=== PATIENT | male | born 1990 | race Caucasian/White ===

== ENCOUNTER 2023-01-06 21:55 | Emergency (ER) | payer MEDICAID, SELFPAY ==
[2023-01-06 21:58] VITALS: BP 146/95; PULSE 74; RESP 16; TEMP 36.9; O2SAT 99; BMI 23.6
[2023-01-06 22:48] VITALS: BP 115/73; PULSE 70; RESP 17; TEMP 37; O2SAT 98
--- NOTE | 2023-01-06 23:38 | ED.WOUNDLAC ---
HPI - Wound/Laceration General Chief Complaint: Wound/Laceration Stated Complaint: Forehead Lac Time Seen by Provider: 01/06/23 23:17 Source: patient Mode of arrival: ambulatory Limitations: no limitations History of Present Illness HPI narrative: 32-year-old male without significant medical history, presents to the emergency department for evaluation of laceration to left eyebrow, patient reports that about 2 hours ago patient was changing a tire and hit his face with the metal when she was using to change the tire. No loss of consciousness, reports it started bleeding and he started having pain at the site. Denies dizziness, vision changes, nausea, vomiting, abdominal pain, pain with eye movements, chest pain, shortness of breath. NIH stroke scale 0. Related Data Allergies Allergy/AdvReac Type Severity Reaction Status Date / Time Unable to Assess Allergy Unverified 01/06/23 23:41 Review of Systems Review of Systems: Constitutional : No Fever, No Chills, Cardiovascular : No Chest Pain, No SOB Respiratory : No Dyspnea Gastrointestinal : No abdominal pain Musculoskeletal : No Joint Swelling Skin : No rash, positive skin laceration Neuro : No Weakness, No Numbness Psych : No SI/HI Yes all other systems are reviewed and are negative [facility] Past Medical History Attestation statement: The following information was validated with the patient. Source: old records reviewed and nursing notes reviewed Social History Social History Advance Directives: No Advance Directives Information Provided: No Physical Exam Vital Signs: Vital Signs: Last Vital Signs Temp 98.6 F 01/06/23 22:48 Pulse 70 01/06/23 22:48 Resp 17 01/06/23 22:48 BP 115/73 01/06/23 22:48 Pulse Ox 98 01/06/23 22:48 O2 Del Method Room Air 01/06/23 22:48 BMI result Body Mass Index 23.6 vss Appearance: Alert.? Oriented X3.? No acute distress.? Head: Normocephalic, atraumatic, no step-offs or deformities Eyes: Pupils equal, round and reactive to light.? Extraocular movements intact and pain-free. No signs of nerve entrapment. ENT: Pharynx normal.? Neck: Normal inspection.? Neck supple.? CVS: Normal heart rate and rhythm.? Pulses normal.? Respiratory: No respiratory distress.? Breath sounds normal.? Abdomen: Soft and nontender.? Skin: Skin warm and dry.? Normal skin color.? Normal skin turgor.?+ 2 cm linear laceration overlying left eyebrow, no foreign bodies. No signs of skull fracture. Extremities: No lower extremity edema.? No calf ttp. 5/5 strength to bilateral upper and lower extremities Neuro: Oriented X 3.? No motor deficit.? No sensory deficit. CN 2-12 intact . Normal hebfck-ye-eqqh, tyrd-kk-pdca, steady tandem gait normal coordination. Negative Romberg and pronator drift. Course Reevaluation(s) Reevaluation #1: Laceration repaired with Dermabond, nursing to give Boostrix . Educated patient on diagnosis and treatment plan, answered all question, patient verbalizes understanding. At this time patient will be discharged home, advised to return with new or worsening symptoms. Educated on worrisome signs and symptoms and when to return. At this time I feel comfortable discharge home. Time: 23:45 Medical Decision Making Medical Decision Making [facility] Narrative: [id number] 32-year-old male presents with laceration to left eyebrow. Happened prior to arrival. Not up-to-date on tetanus shot Physical exam significant for 2 cm linear laceration overlying left eyebrow, no foreign bodies. No signs of skull fracture. Likely simple laceration. Unlikely skull fracture, intracranial hemorrhage, stroke, posterior stroke. No signs of facial fractures. No signs of nerve entrapment. Concerns for concussion without loss of consciousness. Plan repair with Dermabond. Very superficial. I did discuss glue versus sutures with patient at this time Dermabond was selected. Risks versus benefits explained. Patient verbalizes understanding. Differential Diagnosis Differential Diagnoses: The differential diagnosis associated with the presentation includes Likely simple laceration. Unlikely skull fracture, intracranial hemorrhage, stroke, posterior stroke. No signs of facial fractures. No signs of nerve entrapment. Concerns for concussion without loss of consciousness. Admission/Observation Consideration of admission/observation: Escalation of care including admission/observation considered no indication Tests considered The following testing was considered but not selected: CT Unnecessary The [place] Head CT Rule suggests a head CT is not necessary for this patient (sensitivity 83-100% for all intracranial traumatic findings, sensitivity 100% for findings requiring neurosurgical intervention). Core Measures AMI core measures followed: Yes Measure exclusions: not indicated Critical Care Time Critical Care Time Critical Care Time: No Discharge Plan Discharge Clinical Impression: Laceration, Concussion Patient Disposition: Home, Self-Care Instructions: Concussion (ED), Post Concussion Syndrome (ED) Additional Instructions: Take your medications as prescribed. If you were prescribed antibiotics today, it is important that you take your medication to their entirety, do not skip any doses, do not finish them early. Follow-up with your primary care provider this week. Return to the emergency department with new or worsening symptoms. Such as fevers, chills, chest pain, shortness of breath, nausea, vomiting, dizziness, headache, vision changes, lethargy In case of emergency call 911 Allow the glue to fall off on its own Referrals: PhysicianJavier J [Primary Care Provider] - 2 days
[2023-01-07] MEDS: Diphth,Pertus(ACell),Tet Adult 0.5 ML SYRINGE IM (00:04)
== END 2023-01-07 00:10 | disposition home or self-care (01) ==
PROVIDERS: Emergency Provider Emergency Medicine
DX: S01.112A Laceration without foreign body of left eyelid and periocular area, initial encounter (principal); W22.8XXA Striking against or struck by other objects, initial encounter; Y93.89 Activity, other specified; Y92.410 Unspecified street and highway as the place of occurrence of the external cause; Y99.9 Unspecified external cause status
CPT/HCPCS: 12011; 90471; 90715; 99282; 99284

== ENCOUNTER 2023-11-14 07:40 | Emergency (ER) | payer SELFPAY ==
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
[2023-11-14 07:53] VITALS: BP 124/80; BP 132/81; PULSE 84; PULSE 86; RESP 16; TEMP 36.6; O2SAT 97; BMI 23.2
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
[2023-11-14] MEDS: Acetaminophen 325 MG TABLET 975 MG PO (09:54)
[2023-11-14] MEDS: Ibuprofen 600 MG TABLET PO (09:55)
--- NOTE | 2023-11-14 10:00 | PC.NURSE ---
pt medicated per provider order. effectiveness pending.
--- NOTE | 2023-11-14 10:19 | PC.NURSE ---
sutures applied by ED provider at this time. pt waiting to go to xray.
[2023-11-14 12:50] VITALS: BP 110/67; PULSE 80; RESP 16; TEMP 36.8; O2SAT 98
[2023-11-14 12:51] VITALS: BP 110/67; PULSE 80; RESP 16; TEMP 36.8; O2SAT 98
== END 2023-11-14 12:51 | disposition home or self-care (01) ==
PROVIDERS: Emergency Provider Emergency Medicine
DX: S01.511A Laceration without foreign body of lip, initial encounter (principal); S30.0XXA Contusion of lower back and pelvis, initial encounter; R10.2 Pelvic and perineal pain; V13.4XXA Pedal cycle driver injured in collision with car, pick-up truck or van in traffic accident, initial encounter; Y93.9 Activity, unspecified; Y92.410 Unspecified street and highway as the place of occurrence of the external cause; Y99.8 Other external cause status
CPT/HCPCS: 12011; 72170; 99283; 99284

== ENCOUNTER 2024-01-30 14:50 | Outpatient (REF) | payer SELFPAY ==
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
[2024-01-30 16:32] LABS: Estimated Average Glucose 103 mg/dL; Hemoglobin A1c % 5.2 % (<6.0)
[2024-01-30 20:41] LABS: Alanine Aminotransferase 24 U/L (0-40); Albumin Level 4.4 g/dL (3.5-5.0); Alkaline Phosphatase 84 U/L (39-117); Anion Gap 12 (12-20); Aspartate Amino Transferase 26 U/L (5-37); Bilirubin Total 0.4 mg/dL (0.0-1.0); Blood Urea Nitrogen 14 mg/dL (9-16); Calcium 9.4 mg/dL (8.4-10.2); Carbon Dioxide 25 mmol/L (22-29); Chloride 106 mmol/L (96-108); Cholesterol 154 mg/dL (<200); Estimated Glomerular Filt Rate > 60; Glucose Random 104 mg/dL (60-115); HDL Cholesterol 60 mg/dL (>40); LDL Cholesterol Calculated 85 mg/dL (<100); Potassium 3.8 mmol/L (3.3-5.1); Sodium 139 mmol/L (135-145); Total Protein 7.2 g/dL (6.5-8.0); Triglycerides 48 mg/dL (<150)
[2024-01-31 05:27] LABS: HIV AB/AG Nonreactive (Nonreactive); HIV Num 1 0.05 S/CO (0.00-0.99); ~HepC Num1 0.12 S/CO (0.00-0.79); ~Hepatitis C Antibody Nonreactive (Nonreactive)
== END 2024-01-30 14:51 | disposition home or self-care (01) ==
LOC: HO.HHCL 14:50
PROVIDERS: Visit Provider Nurse Practitioner Family
DX: Z00.00 Encounter for general adult medical examination without abnormal findings (principal); M54.6 Pain in thoracic spine; Z83.3 Family history of diabetes mellitus; Z13.1 Encounter for screening for diabetes mellitus
CPT/HCPCS: 36415; 72100; 80053; 80061; 83036; 86803; 87389

== ENCOUNTER 2024-04-12 15:28 | Outpatient (AMB) | payer MEDICAID, SELFPAY ==
--- NOTE | 2024-04-12 15:46 | MHC.OFFVIS ---
Intake Visit Reasons: [employer] urinary urgency Intake Note: New Patient is present for Vasectomy Consult Program Director Group Work Required: No Allergies No Known Allergies Allergy (Verified 04/12/24 16:00) HPI Comments Details: Sesar is a pleasant male. He is a patient of . He is seen for the following urologic conditions - lower urinary tract symptoms - anxiety about health Vasectomy evaluation The patient presents for vasectomy consultation. He is currently He has fathered - 3 child, with a single partner. The youngest child is - greater than 1 year. His partner is aware and permissive for a vasectomy Current form of control is barrier. The vasectomy may be complicated due to a history of [no] complicating issues, inguinal hernia repair, orchidopexy, history of orchitis, orchiectomy. Patient education has been provided via AUA video, via printed information, risks of failure, recovery time, bruising and potential pain syndrome have been stressed Discussion today focused on the presence of vasectomy and the risks, benefits and alternatives that are available. Vasectomy as intended as a permanent form of control. Printed information and literature was provided to the patient. Overall there is a one in 2500 failure rate. This can occur at any time after vasectomy. Risks were discussed highlighting hematoma, spermatocele, epididymal congestion, development of sperm antibodies, and development of chronic pain estimated between 1-5%. The procedure was reviewed in detail. Anatomical diagrams of the male genitalia were used to explain the location of the vas deferens. The vas deferens will be transected, the proximal end will be cauterized, a metal clip would be applied to separate the 2 vas deferens ends. It was explained the procedure will be done in the office and takes approximately 10-15 minutes. Less common problems that arise with vasectomy include hematoma, bleeding, allergic reaction to anesthetic, epididymal infection, epididymal congestion, scrotal discomfort, spermatic leak, spermatic granuloma and the possibility of antisperm antibodies. He understands these risks and wishes to proceed. Consent was signed at the office today. He also understands that it takes 12 weeks for sperm to fully clear the system. He will need to provide a semen sample at 12 weeks and if this is not clear a 2nd sample at 16 weeks. Medical clearance to stop using protection will only be provided if he satisfies published criteria for sperm clearance. [facility] Medical History (Updated 05/30/24 @ 14:46 by Andrew Germain MD) Chronic midline thoracic back pain Dental caries Social History (Updated 04/08/24 @ 16:27 by DUSTIN Fallon) Household Members: Spouse Housing: Apartment Review of Systems Const Denies chills and Denies fever(s) Card Reports no additional complaints and Denies syncope Resp Denies cough GI Denies abdominal pain and Denies heartburn Reports as per HPI and Denies change in libido Neuro Denies syncope Psych Denies change in libido Endo Denies change in libido Physical Exam Const General: cooperative, healthy appearing, comfortable and no acute distress Orientation/consciousness: patient oriented x3 HEENT Face and sinus: Yes normal facial exam Mouth: moist mucous membranes Neck Neck: Yes normal visual inspection, Yes full ROM and Yes trachea midline Chest Chest palpation & inspection: normal inspection of the chest Resp Effort & Inspection: normal respiratory effort, able to speak in complete sentences and no respiratory distress GI Inspection: Yes normal to inspection Back/Spine/Pelvis Cervical Spine: normal cervical lordosis Thoracic/Lumbar Spine: thoracic and lumbar spine normal to inspection Skin General skin exam: no rashes or lesions noted Neuro General: patient oriented x3, gait normal, tone normal and moves all extremities Extrem General: Yes normal to inspection and Yes capillary refill normal Assessment & Plan Assessment & Plan (1) Bladder instability: Code(s): N32.89 - Other specified disorders of bladder Category: Medical (2) Anxiety about health: Code(s): R45.89 - Other symptoms and signs involving emotional state Category: Medical Plan Vasectomy Patient Instructions: Imaging studies, laboratory and physical exam results were discussed and reviewed in detail. No major barriers to patient understanding were identified. An opportunity to ask questions regarding the treatment plan was provided. All questions were answered. The patient expressed understanding and agreement with the above treatment plan. The patient is aware they should contact our office by phone for worsening of their current condition or the appearance of new urologic symptoms. Compliance is encouraged with any medications and followup testing that is ordered. It is a privilege to participate in the urologic care of your patient. If you have any questions or concerns regarding treatment for the above conditions, or other urologic issues, please do not hesitate to contact me. The office telephone contact is [phone]. This note is constructed using voice recognition software. While every effort has been made to ensure accuracy news department intern errors may have been included. Yours sincerely, Dr Andrew Germain MD, M[facility] - Urology Providers of Expert, Compassionate Care for the Genitourinary System Coding Level of Care Code New Pt Level 4 (53219) Diagnoses Bladder instability N32.89 Anxiety about health R45.89
== END 2024-04-12 16:18 | disposition home or self-care (01) ==
PROVIDERS: PCP Nurse Practitioner Family; Visit Provider Urology
DX: N32.89 Other specified disorders of bladder (principal); R45.89 Other symptoms and signs involving emotional state
CPT/HCPCS: 99204

== ENCOUNTER → 2024-04-12 15:28 | Outpatient (BNVA) | payer MEDICAID, SELFPAY | PROVIDERS: PCP Nurse Practitioner Family; Visit Provider Urology | DX: N32.89 Other specified disorders of bladder (principal); F41.8 Other specified anxiety disorders; Z30.09 Encounter for other general counseling and advice on contraception | CPT/HCPCS: 99202 ==

== ENCOUNTER 2024-05-20 12:07 | Outpatient (REF) | payer MEDICAID, SELFPAY ==
--- NOTE | ~2024-05-20 | XR_ITS ---
EXAMINATION: XR SHOULDER, LEFT CLINICAL INFORMATION: PAIN COMPARISON: None available. TECHNIQUE: AP external rotation, Grashey, scapular Y, and axillary views of the left shoulder. FINDINGS: No fracture. Glenohumeral and acromioclavicular alignment is anatomic with normal joint space. No abnormal soft tissue calcifications. XR/XR shoulder LT min 2V IMPRESSION: No acute osseous abnormality Electronically signed by: Zaire Will MD 05/20/2024 04:31 PM EST
== END 2024-05-20 12:08 | disposition home or self-care (01) ==
LOC: HO.HHCX 12:07
DX: M25.512 Pain in left shoulder (principal)
CPT/HCPCS: 73030

== ENCOUNTER → 2024-06-28 14:52 | Outpatient (BNVA) | payer MEDICAID, SELFPAY | PROVIDERS: PCP Nurse Practitioner Family; Visit Provider Urology | DX: Z30.2 Encounter for sterilization (principal); R45.89 Other symptoms and signs involving emotional state | CPT/HCPCS: 55250; 81003 ==

== ENCOUNTER 2024-07-31 08:58 | Outpatient (RCR) | payer MEDICAID, SELFPAY | END 2024-08-29 11:06 | disposition home or self-care (01) | LOC: HO.PT 08:58 | PROVIDERS: PCP Nurse Practitioner Family; Visit Provider Nurse Practitioner Family | DX: M25.512 Pain in left shoulder (principal) | CPT/HCPCS: 97110; 97161; 97530 ==

== ENCOUNTER 2024-08-07 08:22 | Outpatient (REF) | payer MEDICAID, SELFPAY ==
--- NOTE | ~2024-08-07 | XR_ITS ---
EXAMINATION: XR SHOULDER, RIGHT CLINICAL INFORMATION: M25.511 - Pain in right shoulder COMPARISON: None available. TECHNIQUE: AP external rotation, Grashey, scapular Y, and axillary views of the right shoulder. FINDINGS: No acute cortical disruption or malalignment. No lytic or blastic lesions. No metallic or radiopaque foreign body. No subcutaneous emphysema. XR/XR shoulder RT min 2V IMPRESSION: Normal right shoulder. Electronically signed by: Ezra Retana MD 08/12/2024 08:57 AM EDT
--- OUTSIDE RECORDS SUMMARY | 2024-08-07 08:50 | XMS_ITS | Continuity of Care Document ---
Author Organization [facility] Address [address] [place] [address] Phone Care Team Providers Care Art Education Professor Name Role Phone Unavailable Unavailable Unavailable Allergies, Adverse Reactions, Alerts Substance Reaction Status Criticality No Known allergies Medications Medication Instructions Dosage Effective Dates (start - stop) Status Comments ibuprofen 800 mg tablet take 1 tablet (800MG) by oral route 3 times every day with food 800 MG - Active Procedures Procedure Date Resin-Based Composite-Two Surfaces, Post erior Prophylaxis-Adult Oral Hygiene Instructions Periodontal Probing Extraction, Erupted Tooth Or Exposed Tasia t (Elevati Comprehensive Oral Evaluation-New Or Est ablished P Intraoral-Complete Series (Including Bit ewings) Advance Directives Directive Yes / No Effective Date File Name No Information Encounters Encounter Description Practice Location Reason(s) For Visit Diagnoses Date Provider Providers Copied on Encounter Rodrigo [facility], [address] [place] [address],[address], [place], [place], [id number], tel:[phone] examination 4 No Information jennifer [facility], [address] [place] [address],[facility] [address], [place], [place], [id number], [place] tel:[phone] examination 4 Lisset Davis. [address] [place], [place], [id number]. tel:[phone] Edward [facility], [address], [place], [place], [id number], [place] tel:[phone] [facility] Dental examination 3 No Information Rodrigo Cruz [facility], [address], [place], [place], [id number], [place] tel:[phone] examination 3 Lisset Davis. [address] [place], [place], [id number]. tel:[phone] Family History Family Member Type Diagnosis Age At Onset No Information Payers Payer name Insurance type Covered constitution party ID Cici rolle(s) Juan [employer] [facility] ZZ [id number] Social History Type Description Quantity Date Captured Comments Sex Male Smoking Status No Information Chief Complaint And Reason For Visit No Information Reason For Referral Reason For Referral No Information Plan Of Treatment Date Type Action Status Goal Unhealthy drug use screening . Due on due Goal Document SOGI Information. D ue on due Goal Diabetes Screening. Due on due Goal Tdap. Due on due Goal APE. Due on due Goal Td vaccine. Due on 14 due Goal Influenza vaccine. Due on due Goal Td vaccine. Due on 14 due Goal APE. Due on due Goal Tdap. Due on due Goal Influenza vaccine. Due on due History Of Present Illness Encounter Date Complaint History Of Prese nt Illness No Information Functional Status Date Functional Assessmen t No Information Instructions Date Instruction Additional Infor mation No Information Assessments Type Assessment Date No Information Patient Care Teams Name Effective Dates (start - stop) Status Members No Information
--- OUTSIDE RECORDS SUMMARY | 2024-08-07 08:50 | XMS_ITS | Encounter Summary ---
Author Organization [facility] Address [address] [place] [address] 7 [place] [address] Care Team Providers Care Turbine Engine Assembler Name Role Phone Barry Granger Unassigned Primary Care Provider Unavailable Manda Sanders NP Primary Care Provider [phone] Reason for Visit * Reason Comments Med Change Request Encounter Details Date Type Department Care Team ([facility] Contact Info) Description 06/13/2023 Refill [facility] [address] [place] [address] Yoli Layton FNP [address] [place] [address] Social History Tobacco Use Types Packs/Day Years Used Date Smoking Tobacco: Never Passive Smoke Exposure: Never Smokeless Tobacco: Never Alcohol Use Standard Drinks/Week Comments Defer 0 (1 standard drink = 0.6 oz pur e alcohol) Sex and Gender Information Value Date Recorded Sex Assigned at Male 05/22/2023 12:42 PM EST Legal Sex Male 4:19 PM EDT Gender Identity Male 05/22/2023 12:42 PM EST Sexual Orientation Straight 05/22/2023 12 :42 PM EST documented as of this encounter Plan of Treatment Not on file documented as of this encounter Visit Diagnoses Not on filedocumented in this encounter Care Teams Turbine Engine Assembler Relationship Specialty Start Date End Date Barry Granger Unassigned PCP - General 11/24/23 4 Manda Sanders NP [address] [place] [address] PCP - General Family Medicine 01/30/24 documented as of this encounter
--- OUTSIDE RECORDS SUMMARY | 2024-08-07 08:50 | XMS_ITS | Clinical Summary ---
Author Organization [employer] Address [address] [place] [address] [address]t [place] [address] Care Team Providers Care System Support Analyst Name Role Phone Manda Sanders ISMAEL Primary Care Provider [phone] Allergies No known active allergies Medications hydrocortisone (Preparation H) 1 % cream Apply to anal area bid prn 30 g 2 4 Active metroNIDAZOLE (Metrogel) 0.75 % gel Apply topically 2 times daily. 45 g 3 4 04/02/20 25 Active ibuprofen 600 MG tablet Take 1 tablet (600 mg) by mouth every 6 (six) hours if needed for mild pain for up to 20 doses. 20 tablet 4 Active Active Problems Problem Noted Date Diagnosed Date Acute pain of left shoulder 05/10/2024 Assessment & Plan (05/10/2024 2:00 PM EST): No decreased ROM or decreased strength in left shoulder. No swelling, no redness or excessive heat. +empty can test and arc test D/t hx and presenting sx suspicion for rotator cuff tear; differential dx: subacromial impingement syndrome Will order X ray to r/o fracture Referred to Physical Therapy, if ineffective consideration for MRI Pt declines need for pain control at this time. F/u PRN for new or worsening sx Symptomatic irreversible pulpitis 04/15/2024 Rosacea, acne 04/02/2024 Assessment & Plan (04/02/2024 6:47 PM EDT): Advised re use of sunblock, moisturizer and Metrogel bid x 2w then at bedtime for 1mo then prn. Avoid heat or extreme temperatures, stress, alcohol, and spicy foods. FU with PCP Chronic midline thoracic back pain 01/30/2024 Assessment & Plan (02/06/2024 4:31 PM EDT): Chronic issue, x-ray ordered Referral to physiatry Family history of diabetes mellitus (DM) 024 Assessment & Plan (02/06/2024 4:31 PM EDT): Labs as ordered below Dental caries on smooth surface limited to ename l 06/13/2023 Encounters Date Type Department Care Team Description 07/01/2024 Orders Only [address] [address] Monica Ryan CNP Acute pain of left shoulder (Primary Dx) 07/01/[address] [address] Manda Sanders NP Imaging Order 06/26/[address] [address] Manda Sanders NP Lab Orders 05/10/2024 1:00 PM EST Office Visit [address] [address] Monica Ryan CNP Acute pain of left shoulder (Primary Dx) 05/10/[address] [address] Monica Ryan CNP 05/10/[address] [address] Thor Victor [place] Chart Prep 05/10/2024 Telephone [facility] [address] [place] [address] Manda Sanders NP triage pt 2 out of 2 from Last 3 Months Immunizations Name Administration Dates Next Due Tdap 01/07/2023 Social History Tobacco Use Types Packs/Day Years Used Date Smoking Tobacco: Never Passive Smoke Exposure: Never Smokeless Tobacco: Never Alcohol Use Standard Drinks/Week Comments Yes 0 (1 standard drink = 0.6 oz pur e alcohol) occasionally Depression Answer Date Recorded Patient Health Questionnaire-9 Score 0 01/30/2024 Patient Health Questionnaire-9 Score 0 01/30/2024 Last PHQ-9: Questionnaire Data Not on file 0 01/30/2024 Housing Stability Answer Date Recorded What is your housing situation today? I have arias guerra 01/30/[address] you li ve. Do you have problems with any of the following? None of the above 01/30/2024 Food Insecurity Answer Date Recorded Within the past 12 months, y ou worried that your food would run out before you got money to buy more: Never True 01/30/2024 Within the past 12 months,th e food you bought just didn't last and you didn't have enough money to get more: Never True Transportation Answer Date Recorded In the past 12 months, has l ack of transportation kept you from medical appts, meetings, work or from getting things needed for daily living? No 01/30/2024 Utilities Answer Date Recorded In the past 12 months, has t he electric, gas, oil or water company threatened to shut off services in your home? No 01/30/2024 Depression Answer Date Recorded Patient Health Questionnaire-2 Score 0 01/30/2024 Internet Access Answer Date Recorded Internet Access Q1 Yes 02/02/2024 Internet Access Q2 Not on file 02/02/2024 Sex and Gender Information Value Date Recorded Sex Assigned at Male 05/22/2023 12:42 PM EST Legal Sex Male 4:19 PM EDT Gender Identity Male 05/22/2023 12:42 PM EST Sexual Orientation Straight 05/22/2023 12 :42 PM EST Last Filed Vital Signs Vital Sign Reading Time Taken Comments Blood Pressure 122/71 05/10/2024 1:13 PM EST Pulse 61 05/10/2024 1:13 PM EST Temperature 36.7 ??C (98 ??F) 05/10/2024 1:13 PM EST Respiratory Rate 17 05/10/2024 1:13 PM EST Oxygen Saturation 98% 01/30/2024 2:02 PM EDT Inhaled Oxygen Concentration - - Weight 71.4 kg (157 lb 6 oz) 05/10/2024 1:13 PM EST Height 172.7 cm (5' 8 ) 05/10/2024 1:13 PM EST Body Mass Index 23.93 05/10/2024 1:13 PM EST Plan of Treatment Health Maintenance Due Date Last Done Comments Family Planning (PISQ) 2005 Hepatitis B Vaccines (1 of 3 - 19+ 3-dose series) 2009 Dental Oral Exam 12/13/2023 06/13/2023 Dental Prophylaxis 12/13/2023 06/13/2023 COVID-19 Vaccine (2 - 2023-2 5 season) 2024 12/03/2020 Influenza Vaccine (#1) 2024 Dental X-Ray: Bitewings 06/14/2024 06/13/2023 Alcohol/Substance Use Screening 01/29/2025 01/30/2024 Depression Screening 01/29/2025 01/30/2024, 01/30/2024 SDOH Screening 01/29/2025 01/30/2024 Tobacco Screening 05/10/2025 05/10/2024 Dental X-Ray: Full Mouth 06/14/2026 06/13/2023 DTaP/Tdap/Td Vaccines (2 - T d or Tdap) 01/07/2033 01/07/2023 Zoster Vaccines (1 of 2) 2040 RSV Patients and Patients Aged 60 years or older (1 - 1-dose 75+ series) 2065 HIV Screening Completed 01/30/2024 Hepatitis C Screening Completed 01/30/2024 HIB Vaccines Aged Out No longer eligi ble based on patient's age to complete this topic HPV Vaccines Aged Out No longer eligi ble based on patient's age to complete this topic Hepatitis A Vaccines Aged Out No long er eligible based on patient's age to complete this topic IPV Vaccines Aged Out No longer eligi ble based on patient's age to complete this topic Meningococcal Vaccine Aged Out No patricia lori eligible based on patient's age to complete this topic Pneumococcal Vaccine: Pediatrics (0 to 5 Years) and At-Risk Patients (6 to 49) Years) Aged Out No longer eligible b ased on patient's age to complete this topic RSV under 20 months Aged Out No longe r eligible based on patient's age to complete this topic Rotavirus Vaccines Aged Out No longer eligible based on patient's age to complete this topic Procedures Procedure Name Priority Date/Time Associated Diagnosis Comments XR SHOULDER 2+ VIEWS LEFT Routine 05/20/2024 12:09 PM EST Acute pain of left shoulder HEPATITIS C AB W/REFL TO HCV RNA, QN, PCR Routine 01/30/2024 2:58 PM EDT Healthcare maintenance HIV 1/2 ANTIGEN/ANTIBODY, FOURTH GENERATION W/RFL Routine 01/30/2024 2:58 PM EDT Healthcare maintenance PROPHYLAXIS - ADULT Routine 06/13/2023 8 :00 AM EST Dental caries on smooth surface limited to enamel INTRAORAL - COMPLETE SERIES OF RADIOGRAPHIC IMAGES Routine 06/13/2023 8:00 AM EST Dental caries on smooth surface limited to enamel COMPREHENSIVE ORAL EVALUATION - NEW OR ESTABLISHED PATIENT Routine 06/13/2023 8:00 AM EST Dental caries on smooth surface limited to enamel from Last 3 Months or Most Recently Relevant to Health Maintenance Results * XR Shoulder 2+ Views Left (05/20/2024 12:09 PM EST) Anatomical Region Laterality Modality Upper Extremities, Shoulder Left Radi ographic Imaging 05/20/2024 12:0 9 PM EST Narrative 05/20/2024 4:34 PM EST ?[facility] ?[address] ?[place] [address] ?XRay Report ? Signed ? Patient: Richard Lori,Sesar Bartolo ?MR ?? #: [id number] ? : 1990 ?Acct:[id number] ? Age/Sex: 34 / M ?ADM Date: 05/20/24 ? Loc: HO.HHCX ? Attending Dr: Monica Ryan UTILIZATION MANAGER ? Ordering Physician: Monica Ryan ?? Date of Service: 05/20/24 ?? Procedure(s): XR shoulder LT min 2V ?? Accession Number(s): [id number] ? cc: Ryan,Alexxis ? EXAMINATION: ?? XR SHOULDER, LEFT ? CLINICAL INFORMATION: ?? PAIN ? COMPARISON: ?? None available. ? TECHNIQUE: ?? AP external rotation, Grashey, scapular Y, and axillary views of the ?? left shoulder. ? FINDINGS: ?? No fracture. Glenohumeral and acromioclavicular alignment is anatomic ?? with normal joint space. No abnormal soft tissue calcifications. ? XR/XR shoulder LT min 2V ?? IMPRESSION: ?? No acute osseous abnormality ? Electronically signed by: ??Zaire Will MD ??05/20/2024 04:31 PM EST ?? RP ? Dictated By: ?Zaire Will MD ? Signed By: ?<Electronically signed by Zaire Will MD in OV> ?05/20/24 1631 ? DD/ 1209 ? TD/TT: 05/20/24 1221 ? Promotions Assistant: TAHIRA ? Procedure Note Dongurdeep, Yuliya - 05/20/2024 [place] [address] XRay Report Signed Patient: Sesar FrancoMR #: [id number] : 1990Acct:[id number] Age/Sex: 34 / MADM Date: 05/20/24 Loc: HO.HHCX Attending Dr: Monica Ryan UTILIZATION MANAGER Ordering Physician: Monica Ryan Date of Service: 05/20/24 Procedure(s): XR shoulder LT min 2V Accession Number(s): [id number] cc: Monica Ryan EXAMINATION: XR SHOULDER, LEFT CLINICAL INFORMATION: PAIN COMPARISON: None available. TECHNIQUE: AP external rotation, Grashey, scapular Y, and axillary views of the left shoulder. FINDINGS: No fracture. Glenohumeral and acromioclavicular alignment is anatomic with normal joint space. No abnormal soft tissue calcifications. XR/XR shoulder LT min 2V IMPRESSION: No acute osseous abnormality Electronically signed by: Zaire Will MD 05/20/2024 04:31 PM EST Dictated By: Zaire Will MD Signed By: <Electronically signed by Zaire Will MD in OV> 05/20/24 1631 DD/ 1209 TD/TT: 05/20/24 1221 Promotions Assistant: TAHIRA Monica Ryan [employer] IMG XR PROCEDURES Edited Result - Final * Hepatitis C Antibody with Reflex to HCV, RNA, Quantitative, Real-Time PCR (01/30/2024 2:58 PM EDT) Hepatitis C Antibody Nonreactive Nonreactive [facility] Comment:Antibodies to HCV no t detected; does not exclude early acuteHCV infection. Blood Venous blood specimen / Unknown 01/30/2024 2:58 PM EDT 01/30/2024 4:08 PM EDT Manda Sanders NP LAB BLOOD ORDERABLES Final Resul t Performing Organization Address [facility] Co de Phone Number [facility] [address] [place] [phone] * HIV-1/2 Antigen and Antibodies, Fourth Generation, with Reflexes (01/30/2024 2:58 PM EDT) Pathologist [facility] HIV AB/AG Nonreactive Nonreactive [facility] Comment:HIV-1 p24 Ag and/or HIV-1/HIV-2 Ab not detected.A test result that is nonreactive does not exclude thepossibility of exposure to or infection with HIV-1 and/orHIV-2. Nonreactive results in this assay for individualswith prior exposure to HIV-1 and/or HIV-2 may be due toantigen and antibody levels that are below the limit ofdetection of this assay.[employer] HIV Ag/Ab Combo assay result andsupplemental assay results should be interpreted inconjunction with the patient's clinical presentation,history and other laboratory results. If the results areinconsistent with clinical evidence, additional testing issuggested to confirm the result. Blood Venous blood specimen / Unknown 01/30/2024 2:58 PM EDT 01/30/2024 4:08 PM EDT Manda Sanders NP LAB BLOOD ORDERABLES Final Resul t Performing Organization Address City/[facility]/ZIP Co de Phone Number [facility] [address] [place] [address] [phone] from Last 3 Months or Most Recently Relevant to Health Maintenance [place] [facility] MEDICAID STAND ADULT [address] [id number] Care Teams System Support Analyst Relationship Specialty Start Date End Date Manda Sanders NP [address] [place] [address] PCP - General Family Medicine 01/30/24
--- OUTSIDE RECORDS SUMMARY | 2024-08-07 08:50 | XMS_ITS | Encounter Summary ---
Author Organization [facility] Address [address] [place] [address] 7 [place] [address] Care Team Providers Care Federal Agent Name Role Phone Barry Granger Unassigned Primary Care Provider Unavailable Manda Sanders NP Primary Care Provider [phone] Reason for Visit * Reason Onset Date Comments New Patient 03/21/2023 Encounter Details Date Type Department Care Team ([facility] st Contact Info) Description 03/21/2023 Telephone [facility]INE [address] [place] [address] Jerry Francois MD [address] [place] [address] New Patient Social History Tobacco Use Types Packs/Day Years Used Date Smoking Tobacco: Never Assessed Sex and Gender Information Value Date Recorded Sex Assigned at Male 05/22/2023 12:42 PM EST Legal Sex Male 4:19 PM EDT Gender Identity Male 05/22/2023 12:42 PM EST Sexual Orientation Straight 05/22/2023 12 :42 PM EST documented as of this encounter Miscellaneous Notes * Telephone Encounter - Ike Zaragoza - 03/21/2023 1:42 PM EDT Pt has been transfer over to wait list for [employer]. EFFECTIVE SINCE 03/21/2023 documented in this encounter Plan of Treatment Not on file documented as of this encounter Visit Diagnoses Not on filedocumented in this encounter Care Teams Federal Agent Relationship Specialty Start Date End Date Pcp, Barry Unassigned PCP - General 11/24/23 4 Manda Sanders NP [address] [place] [address] PCP - General Family Medicine 01/30/24 documented as of this encounter
--- OUTSIDE RECORDS SUMMARY | 2024-08-07 08:50 | XMS_ITS | Encounter Summary ---
Author Organization [facility] Address [address] [place] [address] Care Team Providers Care Manager Home Name Role Phone Sammie Sandersily ISMAEL Primary Care Provider [phone] Reason for Visit * Reason Comments Dental Pain Pt came in as an jim rgency with pain on his upper left side. 1 pa taken Encounter Details Date Type Department Care Team (Late st Contact Info) Description 04/15/2024 11:30 AM EST Office Visit [facility] ADULT DENTAL [address] [place] [address] Jamison Dent DDS [address] [place] [address] Symptomatic irreversible pulpitis (Primary Dx) Social History Tobacco Use Types Packs/Day Years [...] PM EST documented as of this encounter Progress Notes * Jamison Dent DDS - 04/15/2024 11:30 AM EST Dental procedures in this visit [id number] - INTRAORAL - PERIAPICAL FIRST RADIOGRAPHIC IMAGE (Completed) Service provider: Jamison Dent DDS Billing provider: Jamison Dent DDS [id number] - CASE PRESENTATION, DETAILED AND EXTENSIVE TREATMENT PLANNING (Completed) Service provider: Jamison Dent DDS Billsendy provider: Jamison Dent DDS [id number] - PALLIATIVE (EMERGENCY) TREATMENT OF DENTAL PAIN - MINOR PROCEDURE (Completed) Service provider: Jamison Dent DDS Billsendy provider: Jamison Dent DDS Patient ID: Sesar Sandoval is a 34 y.o. male. Time Out: No data recorded Location: [facility] Tooth: Maxilla and #14 Procedure: X-rays and Emergency Verified the above with patient, recovery assistant, and provider. Confirmed via patient's chart, intraorally and by radiographs. Legal Recovery Specialist: not applicable Chief Complaint Patient presents with Dental Pain Pt came in as an emergency with pain on his upper left side. 1 pa taken Medical Hx: Vitals: There were no vitals taken for this visit. History reviewed. No pertinent past medical history. Medications: Outpatient Encounter Medications as of 04/15/2024 Medication Sig Dispense Refill hydrocortisone (Preparation H) 1 % cream Apply to anal area bid prn 30 g 2 metroNIDAZOLE (Metrogel) 0.75 % gel Apply topically 2 times daily. 45 g 3 psyllium (Metamucil) 28 % packet Take 1 packet (3.36 g of fiber) by mouth 2 times daily. Mix and drink with at least 8 ounces of water or juice. 60 packet 11 No facility-administered encounter medications on file as of 04/15/2024. Subjective: Pain: intermittent Duration: >5 days Objective: Tooth: #14 Radiographs Taken: FMX Radiographic Findings: Large composite resin filling near pulpar horn Clinical Findings: Tenderness, hypersensitive to palpation Swelling: Tenderness Endo Testing: N/A Perio: BOP Other Findings: Gingival inflammation / Papillae irritation with existing overhang Diagnosis: Symptomatic irreversible pulpitis Assessment/Plan: EOE X Ray Endodontic referral Referred endo consultation at [facility] Dental Prescriptions: Sent to [facility] on file. Pt tolerated procedure well, all questions answered. Dismissed in good condition. NV: External referral Conveyor Installer: Stephanie Houston Dentist: Jamison Dent DDS documented in this encounter Plan of Treatment Not on file documented as of this encounter Procedures Procedure Name Priority Date/Time Associated Diagnosis Comments PALLIATIVE (EMERGENCY) TREATMENT OF DENTAL PAIN - MINOR PROCEDURE Routine 04/15/2024 11:30 AM EST INTRAORAL - PERIAPICAL FIRST RADIOGRAPHIC IMAGE Routine 04/15/2024 11:30 AM EST CASE PRESENTATION, DETAILED AND EXTENSIVE TREATMENT PLANNING Routine 04/15/2024 11:30 AM EST documented in this encounter Visit Diagnoses Diagnosis Symptomatic irreversible pulpitis- Primary documented in this encounter Additional Health Concerns Assessment Noted Time PHQ-9 Depression Total Score: 0 01/30/20 24 2:05 PM EDT documented as of this encounter Care Teams Manager Home Relationship Specialty Start Date End Date Manda Sanders NP [address] [place] [address] PCP - General Family Medicine 01/30/24 documented as of this encounter
== END 2024-08-07 08:23 | disposition home or self-care (01) ==
LOC: HO.HOSX 08:22
PROVIDERS: Visit Provider Physician Assistant
DX: M25.312 Other instability, left shoulder (principal); M25.511 Pain in right shoulder; M75.21 Bicipital tendinitis, right shoulder
CPT/HCPCS: 73030; 99212

== ENCOUNTER 2024-08-07 14:34 | Outpatient (AMB) | payer MEDICAID, SELFPAY ==
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
[2024-08-07 14:55] VITALS: BMI 23.1
--- OUTSIDE RECORDS SUMMARY | 2024-08-07 17:34 | XMS_ITS | Encounter Summary ---
Author Organization [facility] Address [address] 7t [place] [address] Care Team Providers Care Pulp Mill Team Leader Name Role Phone Sammie Sandersily ISMAEL Primary Care Provider [phone] Reason for Visit * Reason Comments Dental Pain Pt came in as an jim rgency with pain on his upper left side. 1 pa taken Encounter Details Date Type Department Care Team (Late st Contact Info) Description 04/15/2024 11:30 AM EST Office Visit [facility] ADULT DENTAL [address] [place] [address] Jamison Dent DDS [address] [place] [address] Symptomatic irreversible pulpitis (Primary Dx) Social History [...] male. Time Out: No data recorded Location: [facility] Tooth: Maxilla and #14 Procedure: X-rays and Emergency Verified the above with patient, senior court office assistant, and provider. Confirmed via patient's chart, intraorally and by radiographs. Continuous Improvement Black Belt: not applicable Chief Complaint Patient presents with [...] Ray Endodontic referral Referred endo consultation at [facility] Dental Prescriptions: [facility] to [facility] on file. Pt tolerated procedure well, all questions answered. Dismissed in good condition. NV: External referral Knuckle Bender: Stephanie Houston Dentist: Jamison Dent DDS documented [...] documented as of this encounter Care Teams Pulp Mill Team Leader Relationship Specialty Start Date End Date Manda Sanders NP [address] [place] [address] PCP - General Family Medicine 01/30/24 documented as of this encounter
--- OUTSIDE RECORDS SUMMARY | 2024-08-07 17:34 | XMS_ITS | Clinical Summary ---
Author Organization [employer] Address [address] [place] [address] 7t [place] [address] Care Team Providers Care Nurse Coordinator Name Role Phone Manda Sanders ISMAEL Primary Care Provider Allergies No known active allergies Medications hydrocortisone [...] Department Care Team Description 07/01/2024 Orders Only [address] [address] Monica Ryan CNP Acute pain of left shoulder (Primary Dx) 07/01/[address] [address] Manda Sanders NP Imaging Order 06/26/[address] [address] Manda Sanders NP Lab Orders 05/10/2024 1:00 PM EST Office Visit [address] [address] Monica Ryan CNP Acute pain of left shoulder (Primary Dx) 05/10/[address] [address] Monica Ryan CNP 05/10/[address] [address] Thor Victor [place] Chart Prep 05/10/2024 Telephone [facility] [address] [place] [address] Manda Sanders NP triage pt 2 out [...] PM EST Narrative 05/20/2024 4:34 PM EST ?[facility] ?[address] ?[place] [address] ?XRay Report ? Signed ? Patient: Richard Lori,Sesar Bartolo ?MR ?? #: [id number] ? : 1990 ?Acct:[id number] ? Age/Sex: 34 / M ?ADM Date: 05/20/24 ? Loc: HO.HHCX ? Attending Dr: Monica Ryan NIGHTMAN ? Ordering Physician: Monica Ryan ?? Date of Service: 05/20/24 ?? Procedure(s): XR shoulder LT min 2V ?? Accession Number(s): [id number] ? cc: Ryan,Alexxis ? EXAMINATION: ?? XR [...] DD/ 1209 ? TD/TT: 05/20/24 1221 ? Cruise Staff Member: TAHIRA ? Procedure Note Dongurdeep, Yuliya - 05/20/2024 [place] [address] XRay Report Signed Patient: Sesar FrancoMR #: [id number] : 1990Acct:[id number] Age/Sex: 34 / MADM Date: 05/20/24 Loc: HO.HHCX Attending Dr: Monica Ryan NIGHTMAN Ordering Physician: Monica Ryan Date of Service: 05/20/24 Procedure(s): XR shoulder LT min 2V Accession Number(s): [id number] cc: Monica Ryan EXAMINATION: XR SHOULDER, LEFT [...] 05/20/24 1631 DD/ 1209 TD/TT: 05/20/24 1221 Cruise Staff Member: TAHIRA Monica Ryan PROFESSIONAL NURSING TUTOR IMG XR PROCEDURES Edited Result - Final * Hepatitis C Antibody with Reflex to HCV, RNA, Quantitative, Real-Time PCR (01/30/2024 2:58 PM EDT) Hepatitis C Antibody Nonreactive Nonreactive [facility] Comment:Antibodies to HCV no t detected; does not exclude early acuteHCV infection. Blood Venous blood specimen / Unknown 01/30/2024 2:58 PM EDT 01/30/2024 4:08 PM EDT Manda Sanders NP LAB BLOOD ORDERABLES Final Resul t Performing Organization Address [facility] Co de Phone Number [facility] [address] [place] [phone] * HIV-1/2 Antigen and Antibodies, Fourth Generation, with Reflexes (01/30/2024 2:58 PM EDT) Pathologist [facility] HIV AB/AG Nonreactive Nonreactive [facility] Comment:HIV-1 p24 Ag and/or HIV-1/HIV-2 Ab not detected.A test result that is nonreactive does not exclude thepossibility of exposure to or infection with HIV-1 and/orHIV-2. Nonreactive results in this assay for individualswith prior exposure to HIV-1 and/or HIV-2 may be due toantigen and antibody levels that are below the limit ofdetection of this assay.The [employer]aredni[employer] Rankr HIV Ag/Ab Combo assay result andsupplemental assay results should be interpreted inconjunction with the patient's clinical presentation,history and other laboratory results. If the results areinconsistent with clinical evidence, additional testing issuggested to confirm the result. Blood Venous blood specimen / Unknown 01/30/2024 2:58 PM EDT 01/30/2024 4:08 PM EDT Manda Sanders NP LAB BLOOD ORDERABLES Final Resul t Performing Organization Address City/[facility]/ZIP Co de Phone Number [facility] [address] [place] [address] [phone] from Last 3 Months or Most Recently Relevant to Health Maintenance Insurance [place] C3 HSN PARTIAL [facility]AL[facility] MEDICAID STAND ADULT [address] [id number] Care Teams Nurse Coordinator Relationship Specialty Start Date End Date Manda Sanders NP [address] [place] [address] PCP - General Family Medicine 01/30/24
--- OUTSIDE RECORDS SUMMARY | 2024-08-07 17:34 | XMS_ITS | Encounter Summary ---
Author Organization [employer] [facility] Address [address] [place] [address] 7 [place] [address] Care Team Providers Care Distribution Superintendent Name Role Phone Barry Granger Unassigned Primary Care Provider Unavailable Manda Sanders NP Primary Care Provider [phone] Reason for Visit * Reason Comments Med Change Request Encounter Details Date Type Department Care Team ([facility] Contact Info) Description 06/13/2023 Refill [facility] [address] [place] [address] Yoli Layton FNP [address] [place] [address] Social History Tobacco Use Types Packs/Day Years [...] on filedocumented in this encounter Care Teams Distribution Superintendent Relationship Specialty Start Date End Date Barry Granger Unassigned PCP - General 11/24/23 4 Manda Sanders NP [address] [place] [address] PCP - General Family Medicine 01/30/24 documented as of this encounter
--- OUTSIDE RECORDS SUMMARY | 2024-08-07 17:34 | XMS_ITS | Encounter Summary ---
Author Organization [facility] [facility] Address [address] [place] [address] 7 [place] [address] Care Team Providers Care Property Inspector Name Role Phone Barry Granger Unassigned Primary Care Provider Unavailable Manda Sanders NP Primary Care Provider [phone] Reason for Visit * Reason Onset Date Comments New Patient 03/21/2023 Encounter Details Date Type Department Care Team ([facility] st Contact Info) Description 03/21/2023 Telephone [facility] MEDICINE [address] [place] [address] Jerry Francois MD [address] [place] [address] New Patient Social History Tobacco Use Types [...] been transfer over to wait list for HOURLY SHIFT. EFFECTIVE SINCE 03/21/2023 documented in this encounter Plan of Treatment Not on file documented as of this encounter Visit Diagnoses Not on filedocumented in this encounter Care Teams Property Inspector Relationship Specialty Start Date End Date Pcp, Barry Unassigned PCP - General 11/24/23 4 Manda Sanders NP [address] [place] [address] PCP - General Family Medicine 01/30/24 documented as of this encounter
--- OUTSIDE RECORDS SUMMARY | 2024-08-07 17:34 | XMS_ITS | Continuity of Care Document ---
Author Organization [facility] Address [address] [place] [address] Phone Care Team Providers Care Audio Tape Librarian Name Role Phone Unavailable Unavailable Unavailable Allergies, [...] Date Provider Providers Copied on Encounter Rodrigo [facility], [address] [place] [address],[address], [place], [place], [id number], tel:[phone] [facility] examination 4 No Information jennifer [facility], [address] [place] [address],[facility] [address], [place], [place], [id number], [place] tel:[phone] [facility] examination 4 Lisset Davis. [address] [place], [place], [id number]. tel:[phone] Edward [facility], [address], [place], [place], [id number], [place] tel:[phone] [facility] Dental examination 3 No Information Rodrigo Cruz [facility], [address], [place], [place], [id number], [place] tel:[phone] [facility] examination 3 Lisset Davis. [address] [place], [place], [id number]. tel:[phone] Family History Family Member Type Diagnosis Age At Onset No Information Payers Payer name Insurance type Covered alliance party ID Cici rolle(s) Juan A [facility] ZZ [id number] Social History Type Description Quantity Date Captured [...]
== END 2024-08-07 15:49 | disposition home or self-care (01) ==
PROVIDERS: PCP Nurse Practitioner Family; Visit Provider Physician Assistant
DX: M25.312 Other instability, left shoulder (principal); M75.21 Bicipital tendinitis, right shoulder
CPT/HCPCS: 99203

== ENCOUNTER → 2024-08-07 14:36 | Outpatient (BNV) | payer MEDICAID, SELFPAY | PROVIDERS: Visit Provider Radiology Diagnostic Radiology | DX: M25.511 Pain in right shoulder (principal) | CPT/HCPCS: 73030 ==

== ENCOUNTER 2024-08-10 10:48 | Outpatient (REF) | payer MEDICAID, SELFPAY ==
--- NOTE | ~2024-08-10 | XR_ITS ---
CLINICAL HISTORY: Patient states history of metal to the eyes, rule out foreign body. MRI Screening XR PRE MRI SCREENING Comparison: None Findings: No acute fractures. No radiopaque foreign body. IMPRESSION: 1. No metallic foreign bodies in the orbits. This document has been electronically signed by: Laquita Almonte MD on 08/10/2024 11:38:45
--- OUTSIDE RECORDS SUMMARY | 2024-08-10 10:52 | XMS_ITS | Continuity of Care Document ---
Author Organization [facility] Address [address] [place] [address] Phone Care Team Providers Care Supervisor Furnace Process Name Role Phone Unavailable Unavailable Unavailable Allergies, [...] Date Provider Providers Copied on Encounter Rodrigo [facility], [address] [place] [address],[address], [place], [place], [id number], tel:[phone] [facility] examination 4 No Information jennifer [facility], [address] [place] [address],[facility] [address], [place], [place], [id number], [place] tel:[phone] [facility] examination 4 Lisset Davis. [address] [place], [place], [id number]. tel:[phone] Edward [facility], [address] [address], [place], [place], [id number], [place] tel:[phone] [facility] Dental examination 3 No Information Rodrigo Cruz [facility], [address], [place], [place], [id number], [place] tel:[phone] [facility] examination 3 Lisset Davis. [address] [place], [place], [id number]. tel:[phone] Family History Family Member Type Diagnosis Age At Onset No Information Payers Payer name Insurance type Covered alliance party ID Cici rolle(s) Juan A [facility] [id number] Social History Type Description Quantity Date Captured [...]
--- OUTSIDE RECORDS SUMMARY | 2024-08-10 10:52 | XMS_ITS | Encounter Summary ---
Author Organization [facility] Address [address] 7t [place] [address] Care Team Providers Care Supervisor Looping Name Role Phone Sammie Sandersily ISMAEL Primary Care Provider Reason for Visit * Reason Comments Dental Pain Pt came in as an jim rgency with pain on his upper left side. 1 pa taken Encounter Details Date Type Department Care Team (Late st Contact Info) Description 04/15/2024 11:30 AM EST Office Visit [facility] ADULT DENTAL [address] [place] [address] Jamison Dent DDS [address] [place] [address] Symptomatic irreversible pulpitis (Primary Dx) Social History [...] male. Time Out: No data recorded Location: [facility] Tooth: Maxilla and #14 Procedure: X-rays and Emergency Verified the above with patient, critical care physician assistant, and provider. Confirmed via patient's chart, intraorally and by radiographs. Timber Girdler: not applicable Chief Complaint Patient presents with [...] Ray Endodontic referral Referred endo consultation at [facility] Dental Prescriptions: Sent to [facility] on file. Pt tolerated procedure well, all questions answered. Dismissed in good condition. NV: External referral [employer] Facility Supervisor: Stephanie Houston Dentist: Jamison Dent DDS documented [...] documented as of this encounter Care Teams Supervisor Looping Relationship Specialty Start Date End Date Manda Sanders NP [address] [place] [address] PCP - General Family Medicine 01/30/24 documented as of this encounter
--- OUTSIDE RECORDS SUMMARY | 2024-08-10 10:52 | XMS_ITS | Clinical Summary ---
Author Organization [employer] Address [address] [place] [address] 7t [place] [address] Care Team Providers Care Meter Changes Records Clerk Name Role Phone Manda Sanders ISMAEL Primary Care Provider [phone] Allergies No known active allergies Medications hydrocortisone [...] Department Care Team Description 07/01/2024 Orders Only [facility] MEDICINE [address] [place] [phone] Monica Ryan CNP Acute pain of left shoulder (Primary Dx) 07/01/[address] [phone] Manda Sanders NP Imaging Order 06/26/2024 Telephone [facility] [address] [place] [address] Manda Sanders NP Lab Orders from Last 3 Months Immunizations Name Administration [...] PM EST Narrative 05/20/2024 4:34 PM EST ?[facility] ?[address] ?[place] [address] ?XRay Report ? Signed ? Patient: Sesar Franco ?MR ?? #: [id number] ? : 1990 ?Acct:[id number] ? Age/Sex: 34 / M ?ADM Date: 05/20/24 ? Loc: HO.HHCX ? Attending Dr: Monica Ryan STRING STUDIES DIRECTOR ? Ordering Physician: Monica Ryan ?? Date of Service: 05/20/24 ?? Procedure(s): XR shoulder LT min 2V ?? Accession Number(s): [id number] ? cc: Monica Ryan ? EXAMINATION: ?? XR SHOULDER, LEFT ? [...] PM EST ?? RP ? Dictated By: ?Suman,Zaire MD ? Signed By: ?<Electronically signed by Zaire Will MD in OV> ?05/20/ 1631 ? DD/ 1209 ? TD/TT: 05/20/24 1221 ? Door Tender: HB ? Procedure Note Donotuseinterpreter, Image - 05/20/2024 [facility] [address] [place] [address] XRay Report Signed Patient: Sesar FrancoMR #: [id number] : 1990Acct:[id number] Age/Sex: 34 / MADM Date: 05/20/24 Loc: HO.HHCX Attending Dr: Monica Ryan STRING STUDIES DIRECTOR Ordering Physician: Monica Ryan Date of Service: 05/20/24 Procedure(s): XR shoulder LT min 2V Accession Number(s): [id number] cc: Monica Ryan EXAMINATION: XR SHOULDER, LEFT [...] 05/20/24 1631 DD/ 1209 TD/TT: 05/20/24 1221 Door Tender: HB Monica Ryan SUPERVISING APPRAISER IMG XR PROCEDURES Edited Result - Final * Hepatitis C Antibody with Reflex to HCV, RNA, Quantitative, Real-Time PCR (01/30/2024 2:58 PM EDT) Hepatitis C Antibody Nonreactive Nonreactive [facility] Comment:Antibodies to HCV no t detected; does not exclude early acuteHCV infection. Blood Venous blood specimen / Unknown 01/30/2024 2:58 PM EDT 01/30/2024 4:08 PM EDT Manda Sanders STRING STUDIES DIRECTOR LAB BLOOD ORDERABLES Final Resul t Performing Organization Address [facility] [place] [facility]/ZIP Co de Phone Number [facility] [address] [place] [address] [phone] * HIV-1/2 Antigen and Antibodies, Fourth Generation, with Reflexes (01/30/2024 2:58 PM EDT) HIV AB/AG Nonreactive Nonreactive [facility] Comment:HIV-1 p24 Ag and/or HIV-1/HIV-2 Ab not detected.A test result that is nonreactive does not exclude thepossibility of exposure to or infection with HIV-1 and/orHIV-2. Nonreactive results in this assay for individualswith prior exposure to HIV-1 and/or HIV-2 may be due toantigen and antibody levels that are below the limit ofdetection of this assay.The Iceberg HIV Ag/Ab Combo assay result andsupplemental assay results should be interpreted inconjunction with the patient's clinical presentation,history and other laboratory results. If the results areinconsistent with clinical evidence, additional testing issuggested to confirm the result. Blood Venous blood specimen / Unknown 01/30/2024 2:58 PM EDT 01/30/2024 4:08 PM EDT us Manda Sanders STRING STUDIES DIRECTOR LAB BLOOD ORDERABLES Final Resul t Performing Organization Address [facility] [place] [facility]/ZIP Co de Phone Number [facility] [address] [place] [address] [phone] from Last 3 Months or Most Recently Relevant to Health Maintenance [facility] MEDICAID STAND ADULT Care Teams Meter Changes Records Clerk Relationship Specialty Start Date End Date Manda Sanders NP [address] [place] [address] PCP - General Family Medicine 01/30/24
--- OUTSIDE RECORDS SUMMARY | 2024-08-10 10:52 | XMS_ITS | Encounter Summary ---
Author Organization [facility] Address [address] [place] [address] 7 [place] [address] Care Team Providers Care Data Analyst Report Writer Name Role Phone Barry Granger Unassigned Primary Care Provider Unavailable Manda Sanders NP Primary Care Provider [phone] Reason for Visit * Reason Onset Date Comments New Patient 03/21/2023 Encounter Details Date Type Department Care Team ([facility] st Contact Info) Description 03/21/2023 Telephone [facility] MEDICINE [address] [place] [address] Jerry Francois MD [address] [place] [address] New Patient Social History Tobacco Use Types [...] been transfer over to wait list for CORROSION PREVENTION METAL SPRAYER. EFFECTIVE SINCE 03/21/2023 documented in this encounter Plan of Treatment Not on file documented as of this encounter Visit Diagnoses Not on filedocumented in this encounter Care Teams Data Analyst Report Writer Relationship Specialty Start Date End Date Pcp, Barry Unassigned PCP - General 11/24/23 4 Manda Sanders NP [address] [place] [address] PCP - General Family Medicine 01/30/24 documented as of this encounter
--- OUTSIDE RECORDS SUMMARY | 2024-08-10 10:52 | XMS_ITS | Encounter Summary ---
Author Organization [employer] [facility] Address [address] [place] [address] 7 [place] [address] Care Team Providers Care Gasket Winder Name Role Phone Barry Granger Unassigned Primary Care Provider Unavailable Manda Sanders NP Primary Care Provider [phone] Reason for Visit * Reason Comments Med Change Request Encounter Details Date Type Department Care Team ([facility] Contact Info) Description 06/13/2023 Refill [facility] [address] [place] [address] Yoli Layton FNP [address] [place] [address] Social History Tobacco Use Types Packs/Day Years [...] on filedocumented in this encounter Care Teams Gasket Winder Relationship Specialty Start Date End Date Barry Granger Unassigned PCP - General 11/24/23 4 Manda Sanders NP [address] [place] [address] PCP - General Family Medicine 01/30/24 documented as of this encounter
== END 2024-08-10 10:49 | disposition home or self-care (01) ==
LOC: HO.XRAY 10:48
PROVIDERS: PCP Nurse Practitioner Family; Visit Provider Physician Assistant
DX: Z13.89 Encounter for screening for other disorder (principal)

== ENCOUNTER → 2024-08-20 10:50 | Outpatient (BNV) | payer MEDICAID, SELFPAY | PROVIDERS: PCP Nurse Practitioner Family; Visit Provider Radiology Diagnostic Radiology | DX: M25.312 Other instability, left shoulder (principal) | CPT/HCPCS: 23350; 77002 ==

== ENCOUNTER 2024-08-20 13:46 | Outpatient (REF) | payer MEDICAID, SELFPAY ==
--- NOTE | ~2024-08-20 | MR_ITS ---
CLINICAL HISTORY: M25.312 - Other instability, left shoulder MR left shoulder arthrogram with intra-articular gadolinium Comparison: None Findings: No acute fracture or pathologic bone lesion. 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 No glenohumeral osteoarthritis. Glenoid labrum is intact. Intra-articular contrast is present. Question tiny 3 mm intrasubstance tear within the distal subscapularis such on sagittal series 10, image 21. The rotator cuff tendons are otherwise intact. The long head of the biceps is intact. IMPRESSION: 1. Mild acromioclavicular osteoarthritis with periarticular edema, which can be associated with pain. 2. Question tiny 3 mm intrasubstance tear within the distal subscapularis tendon, otherwise the rotator cuff is intact. 3. Intact glenoid labrum. This document has been electronically signed by: Edgar Samayoa DO on 08/22/2024 13:14:49
--- NOTE | ~2024-08-20 | FL_ITS ---
EXAMINATION: XR ARTHROGRAM SHOULDER, LEFT CLINICAL INFORMATION: M25.312 - Other instability, left shoulder COMPARISON: None available. TECHNIQUE: Following explaining fluoroscopy-guided left shoulder arthrogram procedure, benefits in risk, a written consent was obtained. Patient was placed supine on fluoroscopy table and optimal site was selected along the left shoulder joint and marked on the skin. The area marked was cleaned and draped in usual sterile manner. 1% Xylocaine was injected at puncture site. Through a small skin incision a 22-gauge spinal needle was advanced into left shoulder joint and 2 mL of nonionic contrast was injected. A single image was obtained for documentation. Subsequently 0.1 mL of gadolinium diluted with 2 mL of 1% lidocaine and 8 mL of saline was injected as a 10 mL volume and needle withdrawn. Complete hemostasis achieved at puncture site with simple band aid applied. Patient tolerated procedure extremely well. She was referred to MRI for further imaging. FINDINGS: On preliminary imaging, the left left glenohumeral and AC joint spaces are maintained normal. No bony erosive changes. No loose bodies. There is intra-articular iodinated contrast visualized in the glenohumeral joint space. FLUOROSCOPY TIME: 58 seconds DOSE AREA PRODUCT: 32.3 uGy-m2 (microgray-meter squared) FL/FL arthrogram shoulder LT IMPRESSION: Successful fluoroscopy-guided left shoulder arthrogram performed. Patient was sent to MRI for further imaging. Electronically signed by: Terry Jernigan MD 08/21/2024 04:37 PM EDT
== END 2024-08-20 13:47 | disposition home or self-care (01) ==
LOC: HO.XRAY 13:46
PROVIDERS: PCP Nurse Practitioner Family; Visit Provider Physician Assistant
DX: M25.312 Other instability, left shoulder (principal)
CPT/HCPCS: 20610; 23350; 73040; 73222; 77002

== ENCOUNTER 2024-09-06 08:21 | Outpatient (AMB) | payer MEDICAID, SELFPAY ==
--- NOTE | 2024-09-06 08:32 | MHC.OFFVIS ---
Vital Signs 09/06/24 08:33 Height 5 ft 8 in Weight 152 lb BMI 23.1 Intake Visit Reasons: MRI Review shoulder LT Intake Note: Sesar is a 34 year old male who presents today for an MRI review of left shoulder. At last visit he was recommended to continue PT for the right shoulder, an MRI arthrogram was ordered to further evaluate the joint and surrounding structures given his ongoing limitations with strength and mobility. Patient reports that his pain has improved since his last visit. Allergies No Known Allergies Allergy (Verified 09/06/24 08:35) Medication List - Last Reconciled 09/06/24 by Maryann Luu PA-C No Known Home Meds HPI HPI MRI Review shoulder LT: Details: 34-year-old gentleman returns to the office today for a follow-up left shoulder status post MRI. He states since his last visit he has stopped performing exercises that cause pain overall helping the shoulder. [facility] Medical History (Updated 08/07/24 @ 15:15 by Maryann Luu PA-C) Chronic midline thoracic back pain Dental caries Social History Household Members: Spouse Housing: Apartment Patient Tobacco Use Status: Never used Tobacco Current occupational status: unemployed Current occupation: right hand dominant Review of Systems Const All systems reviewed & are unremarkable except as noted in HPI and below Physical Exam Vital Signs: BMI result Body Mass Index 23.1 Extrem Other: Left shoulder full range of motion in all planes. He has good strength with rotator cuff testing. Results Reviewed Results Reviewed: IMPRESSION: 1. Mild acromioclavicular osteoarthritis with periarticular edema, which can be associated with pain. 2. Question tiny 3 mm intrasubstance tear within the distal subscapularis tendon, otherwise the rotator cuff is intact. 3. Intact glenoid labrum. Assessment & Plan Assessment & Plan (1) Other instability, left shoulder: Code(s): M25.312 - Other instability, left shoulder Category: Medical Plan: MRI was reviewed with patient. Explained he should continue to modify activities as needed and work on strength and conditioning exercises to allow him to perform activities without pain. If symptoms arise or there is any concerns he will contact our office otherwise follow up as needed. Coding Level of Care Code Est Pt Level 3 (79114) Complex EM visit Add On G2211 Diagnoses Other instability, left shoulder M25.312
[2024-09-06 08:33] VITALS: BMI 23.1
--- OUTSIDE RECORDS SUMMARY | 2024-09-06 08:33 | XMS_ITS | Continuity of Care Document ---
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 [address] [place], [place], [id number]. tel:[phone] Edward [facility], [address], [place], [place], [id number], [place] tel:[phone] [facility] Dental examination 3 No Information Rodrigo Cruz [facility], [address], [place], [place], [id number], [place] tel:[phone] [facility] examination 3 Lisset Davis. [address] [place], [place], [id number]. tel:[phone] Family History Family Member Type Diagnosis Age At Onset No Information Payers Payer name Insurance type Covered democrat ID Cici rolle(s) Juan A [facility] [id number] Social History Type Description Quantity Date Captured [...]
== END 2024-09-06 08:53 | disposition home or self-care (01) ==
LOC: HO.HOS 08:21
PROVIDERS: PCP Nurse Practitioner Family; Visit Provider Physician Assistant
DX: M25.312 Other instability, left shoulder (principal)
CPT/HCPCS: 99213

== ENCOUNTER → 2024-09-06 08:21 | Outpatient (BNVA) | payer MEDICAID, SELFPAY | PROVIDERS: PCP Nurse Practitioner Family; Visit Provider Physician Assistant | DX: M25.312 Other instability, left shoulder (principal) | CPT/HCPCS: 99212 ==

== ENCOUNTER 2024-09-17 14:57 | Outpatient (AMB) | payer MEDICAID, SELFPAY ==
--- NOTE | 2024-09-17 14:58 | A.OFFVIS_ITS ---
Intake Visit Reasons: 3M/Collect Semen Intake Note: Patient is present for 3M/SEMEN COLLECT Urology Medication:NONE Antibiotic Allergy:NONE Blood Thinner:NONE Optical Fabrication Technician Required: No Allergies No Known Allergies Allergy (Verified 09/17/24 14:59) HPI Comments Details: Sesar is a pleasant male. He is a patient of Dr. Sanders. He is seen for the following urologic conditions - lower urinary tract symptoms - anxiety about health No sperm seen on high-powered field evaluation Did mention libido reduced since vasectomy Check testosterone Reassurance provided Vasectomy follow-up The patient presents for vasectomy follow-up. He is currently He has fathered - 3 child, with a single partner. The youngest child is - greater than 1 year. His partner is aware and permissive for a vasectomy Current form of control is barrier. [facility] Medical History (Updated 09/17/24 @ 15:16 by Andrew Germain MD) Chronic midline thoracic back pain Dental caries Social History Household Members: Spouse Housing: Apartment Patient Tobacco Use Status: Never used Tobacco Current occupational status: unemployed Current occupation: right hand dominant Review of Systems Const Denies chills and Denies fever(s) Card Reports no additional complaints and Denies syncope Resp Denies cough GI Denies abdominal pain and Denies heartburn Reports as per HPI and Denies change in libido Neuro Denies syncope Psych Denies change in libido Endo Denies change in libido Physical Exam Const General: cooperative, healthy appearing, comfortable and no acute distress Orientation/consciousness: patient oriented x3 HEENT Face and sinus: Yes normal facial exam Mouth: moist mucous membranes Neck Neck: Yes normal visual inspection, Yes full ROM and Yes trachea midline Chest Chest palpation & inspection: normal inspection of the chest Resp Effort & Inspection: normal respiratory effort, able to speak in complete sentences and no respiratory distress GI Inspection: Yes normal to inspection Back/Spine/Pelvis Cervical Spine: normal cervical lordosis Thoracic/Lumbar Spine: thoracic and lumbar spine normal to inspection Skin General skin exam: no rashes or lesions noted Neuro General: patient oriented x3, gait normal, tone normal and moves all extremities Extrem General: Yes normal to inspection and Yes capillary refill normal Assessment & Plan Assessment & Plan (1) Low libido: Code(s): R68.82 - Decreased libido Category: Medical Plan Check testosterone Orders: Orders Testosterone, Free/Total Today R68.82 - Decreased libido Patient Instructions: This note is constructed using voice recognition software. While every effort has been made to ensure accuracy home economics expert errors may have been included. Imaging studies, laboratory and physical exam results were discussed and reviewed in detail. No major barriers to patient understanding were identified. An opportunity to ask questions regarding the treatment plan was provided. All questions were answered. The patient expressed understanding and agreement with the above treatment plan. The patient is aware they should contact our office by phone for worsening of their current condition or the appearance of new urologic symptoms. Compliance is encouraged with any medications and followup testing that is ordered. It is a privilege to participate in the urologic care of your patient. If you have any questions or concerns regarding treatment for the above conditions, or other urologic issues, please do not hesitate to contact me. The office telephone contact is [phone]. Sincerely, Dr Andrew Germain MD, [facility] - Urology Compassionate Specialist Care for the Genitourinary System Coding Level of Care Code Est Pt Level 3 (92734) Diagnoses Low libido R68.82
--- OUTSIDE RECORDS SUMMARY | 2024-09-17 18:14 | XMS_ITS | Continuity of Care Document ---
Author Organization [facility] Address [address] [place] [address] Phone Care Team Providers Care Market Master Name Role Phone Unavailable Unavailable Unavailable Allergies, [...] Date Provider Providers Copied on Encounter Rodrigo [facility], [address] [place] [address],[address], [place], [place], [id number], tel:[phone] [facility] examination 4 No Information jennifer [facility], [address] [place] [address],[address] [address], [place], [place], [id number], [place] tel:[phone] [facility] examination 4 Lisset Davis. [address] [place], [place], [id number]. tel:[phone] Edward [facility], [address], [place], [place], [id number], [place] tel:[phone] [facility] Dental examination 3 No Information Rodrigo Cruz [facility], [address], [place], [place], [id number], [place] tel:[phone] [facility] 3 Lisset Davis. [address] [place], [place], [id number]. tel:[phone] Family History Family Member Type Diagnosis Age At Onset No Information Payers Payer name Insurance type Covered libertarian ID Cici rolle(s) Juan A [employer] [facility] [id number] Social History Type Description Quantity Date Captured [...]
== END 2024-09-17 15:20 | disposition home or self-care (01) ==
LOC: HO.HUSH 14:57
PROVIDERS: PCP Nurse Practitioner Family; Visit Provider Urology
DX: R68.82 Decreased libido (principal)
CPT/HCPCS: 99024

== ENCOUNTER → 2024-09-17 14:57 | Outpatient (BNVA) | payer MEDICAID, SELFPAY | PROVIDERS: PCP Nurse Practitioner Family; Visit Provider Urology | DX: R68.82 Decreased libido (principal) | CPT/HCPCS: 99212 ==